=== PATIENT | male | born 1995 | race Caucasian/White ===

== ENCOUNTER 2020-03-12 23:31 | Emergency (ER) | payer OTHER ==
[~2020-03-12] VITALS: Ht 182.9 cm; Wt 91.6 kg
[2020-03-13] MEDS ORDERED: LIDOCAINE 2% MDV 20ML VIAL SC ONE (00:30)
[2020-03-13 00:55] VITALS: BP 150/76
== END 2020-03-13 00:58 | disposition home or self-care (01) ==
LOC: M ED 23:31 → EDBD 23:31 → M ED 03-13 00:58
DX: S61.213A Laceration without foreign body of left middle finger without damage to nail, initial encounter (principal); W26.8XXA Contact with other sharp object(s), not elsewhere classified, initial encounter; Y92.89 Other specified places as the place of occurrence of the external cause

== ENCOUNTER → 2020-10-25 | Outpatient (CLI) | payer SELFPAY | LOC: M LABSMTC 18:47 | PROVIDERS: ATTEND Pediatrics | DX: Z11.59 Encounter for screening for other viral diseases (principal) ==